=== PATIENT | male | born 1955 | race African-American/Black ===

== ENCOUNTER 2017-06-27 18:19 | Emergency (ER) | payer OTHER ==
[~2017-06-27] VITALS: Ht 177.8 cm; Wt 85.0 kg
[2017-06-27 19:29] LABS: APPEARANCE SL.HAZY ((CLEAR)); BILIRUBIN NEGATIVE; BLOOD NEGATIVE; COLOR YELLOW ((YELLOW)); GLUCOSE (STRIP) >=500; KETONES 20; LEUKOCYTES NEGATIVE; NITRITE NEGATIVE; PROTEIN (STRIP) NEGATIVE
[2017-06-27 19:40] LABS: AMPHETAMINE NEGATIVE (500 ng/mL); BACTERIA RARE /HPF; BARBITURATES NEGATIVE (200 ng/mL); BENZODIAZEPINES NEGATIVE (150 ng/mL); BUPRENORPHINE NEGATIVE (10 ng/mL); COCAINE NEGATIVE (150 ng/mL); EPITHELIAL CELLS NONE SEEN /HPF; METHADONE NEGATIVE (200 ng/mL); METHAMPHETAMINE NEGATIVE (500 ng/mL); MUCUS TRACE /LPF; OPIATES (MORPHINE) NEGATIVE (100 ng/mL); OXYCODONE NEGATIVE (100 ng/mL); PHENCYCLIDINE NEGATIVE (25 ng/mL); PROPOXYPHENE NEGATIVE (300 ng/mL); RED BLOOD CELLS 0-5 /HPF (0-5); THC CANNABINOIDS NEGATIVE (50 ng/mL); TRICYCLIC ANTIDEPRESSANTS NEGATIVE (300 ng/mL); UCUL ADDED? NO; WHITE BLOOD CELLS 0-5 /HPF (0-5)
[2017-06-27 19:53] LABS: CHLORIDE 104 mEq/L (99-109); POTASSIUM 5.2 mEq/L (3.7-5.4); SODIUM 140 mEq/L (136-147)
[2017-06-27 19:54] LABS: GLUCOSE 216 mg/dL (70-99)
[2017-06-27 19:58] LABS: SERUM ETHYL ALCOHOL < 10 mg/dL
[2017-06-27 19:59] LABS: UREA NITROGEN (BUN) 21 mg/dL (9-23)
[2017-06-27 20:03] LABS: GFR ESTIMATE (CALCULATED) > 59 mL/min/ (58.99-99999)
[2017-06-27 20:06] LABS: TROP-I INTERPRETATION NEGATIVE; TROPONIN-I 0.01 ng/mL (0.0-0.30)
[2017-06-27 21:29] LABS: HEMATOCRIT 23.9 % (38.0-50.0); HEMOGLOBIN 6.9 G/DL (12.5-16.6); MCH 22.3 PG (29.0-34.0); MCHC 28.9 G/DL (30.0-36.0); MCV 77.1 FL (86-99); PLATELET COUNT 253 K/uL (156-360); RBC DIS.WIDTH-CV 17.1 % (11.8-14.6); RBC DIS.WIDTH-SD 47.7 % (39-53); WHITE BLOOD COUNT 13.2 K/uL (4.1-10.2)
[2017-06-27 22:09] LABS: INTER. NORMALIZED RATIO 1.2
[2017-06-27 22:22] LABS: PTT 20.2 SEC (25-37)
[2017-06-27 23:04] LABS: IMM.RETIC FRACTION 42.8 % (3-19); RETICULOCYTE COUNT 2.4 % (0.5-1.8)
[2017-06-27 23:40] VITALS: BP 143/82
[2017-06-27 23:55] VITALS: BP 123/76
[2017-06-28 00:30] VITALS: BP 138/82
[2017-06-28 01:28] VITALS: BP 152/87
[2017-06-28 01:33] VITALS: BP 152/87
== END 2017-06-28 01:43 | disposition short-term general hospital (02) ==
LOC: EME 18:19 → EDBD 18:19 → EME 06-28 01:43
PROVIDERS: Emergency Medicine
DX: D64.9 Anemia, unspecified (principal); E11.9 Type 2 diabetes mellitus without complications; Z79.4 Long term (current) use of insulin; F32.9 Major depressive disorder, single episode, unspecified; I10 Essential (primary) hypertension; K21.9 Gastro-esophageal reflux disease without esophagitis; Z87.891 Personal history of nicotine dependence
CPT/HCPCS: 70450; 71045; 80048; 81003; 82948; 83605; 84484; 85027; 85046; 85610; 85730; 86850; 86900; 86901; 86920; 87040; 93005; 99281; 99285; C1751; G0480; J7030; P9016